=== PATIENT | female | born 2000 | race Caucasian/White ===

== ENCOUNTER 2024-03-04 20:27 | Emergency (ER) | payer OTHER, SELFPAY ==
--- NOTE | ~2024-03-04 | CT_ITS ---
CT of the Abdomen and Pelvis: Indication: Abdominal pain Technique: 2.5 mm axial scans were obtained through the abdomen and pelvis following intravenous adm inistration of 100 cc of Omnipaque 350. Dose reduction technique was used on this scan by utilizing a utomated exposure control and iterative reconstruction technique. The dose-length product (DLP) was 3 52.00 mGy-cm. Findings: Scans through the lung bases are unremarkable. The liver, spleen, pancreas, gallbladder, adrenals and kidneys are within normal limits. No evidence of aortic aneurysm. No lymphadenopathy. No bowel obstruction or bowel wall thickening. There is no evidence to suggest acute appendicitis. Images through the pelvis were performed. Urinary bladder unremarkable. 3.3 cm right ovarian cyst pre sent. No ascites. Impression: No significant abnormalities seen. 3.3 cm right ovarian cyst. Reviewed, dictated and finalized at [facility]. Impression: No significant abnormalities seen. 3.3 cm right ovarian cyst.
[2024-03-04 20:41] VITALS: BP 113/80; PULSE 86; RESP 20; TEMP 36.6; O2SAT 95
[2024-03-04 21:07] LABS: Add Urine Microscopic? YES; Appearance Urine Clear (Clear); Bacteria Urine None Seen /hpf; Bilirubin Urine 1+ (Negative); Blood Urine Negative (Negative); Color Urine Dark Yellow (Yellow); Glucose Urine UA Negative (Negative); Ketones Urine Negative (Negative); Leukocyte Esterase Ur Negative LEU/UL (Negative); Need Manual Microscopic Reviewed; Nitrate Urine Positive (Negative); Non Pathogenic Casts 0-2; Protein Urine Negative (Negative); RBC Urine 0-2 /hpf (0-2); Specific Grav Ur 1.017 (1.001-1.035); Squamous Epithelial Cell Urine None Seen /hpf (Few); WBC Urine 0-5 /hpf (0-3)
[2024-03-04 23:28] LABS: Basophils Percent Auto 0.3 % (0.2-1.2); Eosinophils Absolute Auto 0.2 K/mm3 (0-0.3); Eosinophils Percent Auto 2.6 % (0-4.4); Hematocrit 35.4 % (37.0-47.0); Hemoglobin 12.4 g/dL (12.0-15.0); Immature Granulocyte Absolute 0.02 K/mm3 (0.00-0.031); Immature Granulocyte Percent A 0.3 % (0-0.5); Lymphocytes Absolute Auto 2.22 K/mm3 (0.9-3.2); Lymphocytes Percent Auto 28.7 % (18.3-44.2); Mean Corpuscular Hemoglobin 31.6 pg (26-34); Mean Corpuscular Volume 90.1 fl (80-100); Mean Platelet Volume 9.9 fl (7.4-10.4); Monocytes Absolute Auto 0.6 K/mm3 (0.1-0.6); Monocytes Percent Auto 7.8 % (2.6-8.5); Neutrophils Absolute Auto 4.7 K/mm3 (1.3-6.7); Neutrophils Percent Auto 60.3 % (45.5-73.1); Platelet Count Result 210 k/mm3 (150-375); Red Blood Count 3.93 M/mm3 (4.2-5.4); White Blood Count 7.7 K/mm3 (4.5-10.0)
[2024-03-04 23:45] LABS: Alanine Aminotransferase 12 U/L (6-35); Albumin Level 3.9 g/dL (3.5-5.1); Alkaline Phosphatase 53 U/L (38-126); Anion Gap 7 mmol/L (4-12); Aspartate Amino Transferase 20 U/L (14-36); Bilirubin,Total 0.4 mg/dL (0.2-1.3); Blood Urea Nitrogen 6 mg/dL (7-17); Calcium 8.8 mg/dL (8.4-10.2); Carbon Dioxide 26 mmol/L (22-30); Chloride 103 mmol/L (98-107); Estimated CRCL calculation 99 ml/min; Estimated Glomerular Filt Rate > 60; Glucose 99 mg/dL (65-110); Potassium 3.4 mmol/L (3.4-5.0); Sodium 136 mmol/L (137-145)
[2024-03-05 00:06] LABS: Urine Pregnancy Test Negative
[2024-03-05 00:07] LABS: Pregnancy On Board Control Positive
[2024-03-05 01:29] LABS: BEDSIDEPREGUCG Negative (Negative)
[2024-03-05] MEDS: ONDANSETRON INJ 4 MG/2 ML VIAL IV PUSH (01:32)
[2024-03-05] MEDS: SODIUM CHLORIDE 0.9% IV 1,000 ML 999 ML IV CONT (01:33)
[2024-03-05] MEDS: KETOROLAC 30 MG/ML VIAL (*BKC) IV PUSH (01:33)
[2024-03-05 01:38] VITALS: BP 123/79; PULSE 72; RESP 15; O2SAT 100
--- NOTE | 2024-03-05 01:54 | ED.FEMALEGU ---
HPI - Female Genitourinary General Chief complaint: Urogenital-Female Stated complaint: diagnosed uti saturday worsening pain Time Seen by Provider: 03/05/24 00:34 Source: patient Mode of arrival: ambulatory Limitations: no limitations History of Present Illness HPI Narrative: Patient is a 24-year-old female who presents the ED with report of lower abdominal pain. Patient reports she was seen in urgent care on Saturday for UTI symptoms. Notes history of frequent UTIs. Was diagnosed with a UTI started on Keflex. States she initially began to feel improved, however today reported having pain throughout her lower abdomen and lower back, dysuria, urinary frequency. Also reports intermittent nausea, chills, subjective fever. Denies vomiting, hematuria. Has been taking azo for her sx's. Has not taken anything further for pain. Related Data Allergies Allergy/AdvReac Type Severity Reaction Status Date / Time No Known Allergies Allergy Verified 03/04/24 20:42 Review of Systems Review of Systems: All systems reviewed & are unremarkable except as noted in HPI. All systems reviewed & are unremarkable except as noted in HPI and below Exam Narrative: GENERAL: Well appearing, well-nourished, non-toxic, in no acute distress. HEAD: Normocephalic, atraumatic. RESPIRATORY: Airway patent, respirations nonlabored. Clear to auscultation bilaterally, no rales, rhonchi, wheezing. CARDIOVASCULAR: Regular rate and rhythm without murmurs, rubs, or gallops. ABDOMINAL: Soft, mild diffuse tenderness throughout lower abdomen, nondistended. Normoactive BS. Mild +CVA tenderness on the left. MUSCULOSKELETAL: Moves all extremities. No gross deformities. SKIN: Warm, dry, normal color. NEURO: A&O X3. Speech clear. PSYCHIATRIC: Appropriate mood and affect. Normal interaction. Course Vital Signs Vital signs: Vital Signs Temperature 97.8 F 03/04/24 20:41 Pulse Rate 86 03/04/24 20:41 Respiratory Rate 20 03/04/24 20:41 Blood Pressure 113/80 03/04/24 20:41 Pulse Oximetry 95 03/04/24 20:41 Oxygen Delivery Room Air 03/04/24 20:41 Temperature 97.8 F 03/04/24 20:41 Pulse Rate 87 03/05/24 02:53 Respiratory Rate 15 03/05/24 02:53 Blood Pressure 129/83 03/05/24 02:53 Pulse Oximetry 100 03/05/24 02:53 Oxygen Delivery Room Air 03/04/24 20:41 MDM - Female Genitourinary MDM Narrative Medical decision making narrative: Patient presented to ED with lower back and abdominal pain, recent diagnosis of UTI. Started on Keflex. Reporting worsening symptoms. Vital signs are stable upon arrival. Patient is in no acute distress. Cbc without leukocytosis. Stable H& H. CMP is unremarkable. Stable kidney function. Normal electrolytes. Urinalysis with positive nitrate, negative leuk esterase, 0-5 white blood cell count. Urine negative. Urine was sent for culture. Seems as though Keflex is working given reassuring findings on UA today. Will obtain CT imaging to further evaluate and rule out other intra-abdominal pathology. CT scan of abdomen/pelvis was obtained and fairly unremarkable. No evidence of ascending urinary tract infection. Does show right sided ovarian cyst. Patient updated on lab and imaging findings. She is feeling slightly better with supportive therapy. Denies abdominal pain at this time, only reporting some discomfort in her lower back. No significant focal tenderness throughout lower abdomen. I have very low suspicion for torsion at this time. Discussed these findings with patient and overall reassuring workup. Advised she may be having bladder spasms, musculoskeletal etiology. She reports hx of interstitial cystitis, may be pain related to this. Advised to complete abx course, continue Tylenol/ibuprofen/heating pad as needed for pain. Advised to stay well hydrated. Will prescribe Pyridium for symptom relief. Recommended close follow-up with primary care doctor and OBGYN for further evaluation. Otherwise feel patient is safe for discharge home at this time. She is in agreement with this plan. She feels comfortable w/ discharge home. Given strict return precautions. Discharged in stable condition. Medical Records Attestation: I reviewed the patient's medical records. Lab Data Attestation: I reviewed the patient's lab results. 03/04/24 23:22 03/04/24 23:22 Labs: Lab Results 03/04/24 03/04/24 03/05/24 Range/Units 20:46 23:22 00:38 WBC 7.7 (4.5-10.0) K/mm3 RBC 3.93 L (4.2-5.4) M/mm3 Hgb 12.4 (12.0-15.0) g/dL Hct 35.4 L (37.0-47.0) % MCV 90.1 (80-100) fl MCH 31.6 (26-34) pg MCHC 35.0 (32-36) g/dl RDW 12.0 (11.5-14.5) % Plt Count 210 (150-375) k/mm3 MPV 9.9 (7.4-10.4) fl Immature Gran % (Auto) 0.3 (0-0.5) % Neut % (Auto) 60.3 (45.5-73.1) % Lymph % (Auto) 28.7 (18.3-44.2) % Elbert % (Auto) 7.8 (2.6-8.5) % Eos % (Auto) 2.6 (0-4.4) % Baso % (Auto) 0.3 (0.2-1.2) % Lymph # (Auto) 2.22 (0.9-3.2) K/mm3 [place]bert # (Auto) 0.6 (0.1-0.6) K/mm3 Eos # (Auto) 0.2 (0-0.3) K/mm3 Baso # (Auto) 0.0 (0.0-0.1) K/mm3 Abs Immat Gran (auto) 0.02 (0.00-0.031) K/mm3 Absolute Neuts (auto) 4.7 (1.3-6.7) K/mm3 Absolute Nucleated RBC 0.000 (0.0-0.012) K/mm3 Nucleated RBC % 0.0 (0.0-0.2) % Sodium 136 L (137-145) mmol/L Potassium 3.4 (3.4-5.0) mmol/L Chloride 103 (98-107) mmol/L Carbon Dioxide 26 (22-30) mmol/L Anion Gap 7 (4-12) mmol/L BUN 6 L (7-17) mg/dL Creatinine 0.60 L (0.7-1.0) mg/dL Estim Creat Clear Calc 99 ml/min Estimated GFR > 60 (59 - ) Glucose 99 (65-110) mg/dL Calcium 8.8 (8.4-10.2) mg/dL Total Bilirubin 0.4 (0.2-1.3) mg/dL AST 20 (14-36) U/L ALT 12 (6-35) U/L Alkaline Phosphatase 53 (38-126) U/L Total Protein 7.0 (6.3-8.2) g/dL Albumin 3.9 (3.5-5.1) g/dL Urine Color Dark yellow (Yellow) Urine Appearance Clear (Clear) Urine pH 6.0 (5.0-9.0) Ur Specific [place] 1.017 (1.001-1.035) Urine Protein Negative (Negative) mg/dL Urine Glucose (UA) Negative (Negative) mg/dL Urine Ketones Negative (Negative) mg/dL Ur Blood (Man) Negative (Negative) Urine Nitrate Positive H (Negative) Urine Bilirubin 1+ H (Negative) Urine Urobilinogen 1.0 (<2.0) mg/dL Add Ur Microanalysis Reviewed Leukocyte Esterase Rfl Negative (Negative) ANTHONY/UL Urine RBC 0-2 (0-2) /hpf Urine WBC 0-5 (0-3) /hpf Ur Squamous Epith Cells None seen (Few) /hpf Urine Bacteria None seen /hpf Urine Casts 0-2 POC Urine HCG, Qual Negative (Negative) Urine Test Negative Imaging Data Attestation: I personally reviewed and interpreted this imaging study as follows: Radiologist's impression: STAT RAD CT abd/pelvis: Impression: Motion artifact mildly limits evaluation. Normal appendix. No evidence of bowel obstruction. No signs to suggest cystitis or signs of ascending urinary tract infection. Please note that CT is insensitive for this. Consider correlation with laboratory values. 2.9 cm right ovarian cyst. ACR White Paper guidelines suggest no follow-up is necessary. No other acute findings. Discharge Plan Discharge Clinical Impression: Lower abdominal pain, Cyst of right ovary UTI (urinary tract infection) Qualifiers: Urinary tract infection type: acute cystitis Hematuria presence: without hematuria Qualified Code(s): N30.00 - Acute cystitis without hematuria Patient Disposition: Home, Self-Care Condition: Stable Instructions: Antibiotic Form, Ovarian Cyst (ED), Abdominal Pain (ED) Additional Instructions: Complete antibiotic course for UTI. Take Pyridium as prescribed. Continue Tylenol and ibuprofen as needed for pain. Stay well hydrated. Follow-up with your primary care doctor and OBGYN for further evaluation. Return to ED if you experience worsening or severe pain, unable to keep down food or drink, difficulty urinating, persistent fevers, or any other symptoms of concern. Prescriptions: New phenazopyridine [Pyridium] 200 mg tablet 200 mg PO TID Qty: 6 0RF Follow-up/Referrals: PHYSICIAN,PL[employer]ING [employer] OPERATOR [Non-Staff] - Time of Disposition: 04:15
[2024-03-05 02:53] VITALS: BP 129/83; PULSE 87; RESP 15; O2SAT 100
== END 2024-03-05 04:25 | disposition home or self-care (01) ==
PROVIDERS: Emergency Medicine; Emergency Provider Physician Assistant
DX: N30.00 Acute cystitis without hematuria (principal); N83.201 Unspecified ovarian cyst, right side
CPT/HCPCS: 36415; 74177; 80053; 81001; 81025; 85025; 87086; 96361; 96374; 96375; 99284; J1885; J2405; J7030; Q9967